=== PATIENT | female | born 1975 | race Caucasian/White ===

== ENCOUNTER 2019-02-05 14:40 | Outpatient (CLI) | payer OTHER ==
--- NOTE | 2019-02-05 15:09 | RAD ---
CHEST PA AND LATERAL: HISTORY: Cough. COMPARISON: None. FINDINGS: Heart: Normal cardiac silhouette. Aorta: Unremarkable. Pulmonary vessels: Normal. Costophrenic angles: Costophrenic angles are clear. Lungs: No consolidation. Indeterminate 4 mm nodule in the right lung base. Pneumothorax: No pneumothorax. Osseous structures: No osseous abnormalities. IMPRESSION: No consolidation. Indeterminate nodule in the right lung base. Code lung nodule Transcribed Date/Time: 02/05/2019 3:19 PM
== END 2019-02-05 14:41 | disposition home or self-care (01) ==
LOC: SCSRAD 14:40
PROVIDERS: ATTEND Nurse Practitioner Family
DX: R05 Cough (principal); R91.1 Solitary pulmonary nodule
CPT/HCPCS: 36415; 71046; 85025

== ENCOUNTER 2019-04-19 09:08 | Outpatient (CLI) | payer OTHER ==
--- NOTE | 2019-04-19 09:41 | RAD ---
XR Chest Pa Lat @ [facility] HISTORY: Dyspnea COMPARISON: 02/22/2019 FINDINGS: The heart size is normal. The lungs are well expanded without focal areas of consolidation, pneumothorax or pleural effusions. Tiny nodule in the right lateral lung base is stable, likely calcified granuloma. IMPRESSION: No radiographic evidence of acute cardiopulmonary process.
== END 2019-04-19 09:09 | disposition home or self-care (01) ==
LOC: RAD 09:08
PROVIDERS: ATTEND Internal Medicine Critical Care Medicine
DX: R06.00 Dyspnea, unspecified (principal)
CPT/HCPCS: 71046